=== PATIENT | female | born 1985 | race Caucasian/White ===

== ENCOUNTER → 2019-05-12 | Outpatient (CLI) | payer OTHER | END | disposition home or self-care (01) | LOC: PRENATAL 13:00 | DX: O26.849 Uterine size-date discrepancy, unspecified trimester (principal); O99.89 Other specified diseases and conditions complicating pregnancy, childbirth and the puerperium ==

== ENCOUNTER 2019-07-10 23:07 | Outpatient (CLI) | payer OTHER ==
[~2019-07-10] VITALS: Ht 152.4 cm; Wt 77.1 kg
[2019-07-11] MEDS ORDERED: PRENATAL TABLE1 EAC1 PO (00:23)
[2019-07-11] MEDS ORDERED: ZYRTEC10 M3 PO (00:24)
[2019-07-11] MEDS ORDERED: SYNTHROID75 MCG PO (00:24)
[2019-07-11] MEDS ORDERED: CLARITIN10 MG PO (00:25)
[2019-07-11] MEDS ORDERED: FUSION PLUS CA1 EACH PO ×2 (11:47→11:49)
== END 2019-07-11 11:54 | disposition home or self-care (01) ==
LOC: OBS/DEL 23:07
DX: O47.1 False labor at or after 37 completed weeks of gestation (principal); O99.013 Anemia complicating pregnancy, third trimester; D64.89 Other specified anemias

== ENCOUNTER 2019-12-14 11:29 | Outpatient (CLI) | payer OTHER ==
[~2019-12-14 11:29] MED LIST: CLARITIN10 MG PO; FUSION PLUS CA1 EACH PO; PRENATAL TABLE1 EAC1 PO; SYNTHROID75 MCG PO; ZYRTEC10 M3 PO
== END 2019-12-14 11:33 | disposition home or self-care (01) ==
LOC: RAD 11:29
PROVIDERS: ATTEND Physical Medicine & Rehabilitation
DX: M54.5 Low back pain (principal)

== ENCOUNTER 2020-01-25 11:28 | Outpatient (CLI) | payer OTHER | END 2020-01-25 11:39 | disposition home or self-care (01) | LOC: RAD 11:28 | PROVIDERS: ATTEND Physical Medicine & Rehabilitation | DX: M43.16 Spondylolisthesis, lumbar region (principal) ==

== ENCOUNTER 2021-11-02 12:51 | Outpatient (CLI) | payer OTHER | END 2021-11-02 13:06 | disposition home or self-care (01) | LOC: SONOGRAMA 12:51 | PROVIDERS: ATTEND Ophthalmology | DX: R19.8 Other specified symptoms and signs involving the digestive system and abdomen (principal) ==

== ENCOUNTER 2023-03-14 13:47 | Outpatient (CLI) | payer OTHER | END 2023-03-14 13:50 | disposition home or self-care (01) | LOC: PRENATAL 13:47 | PROVIDERS: ATTEND Obstetrics & Gynecology Maternal & Fetal Medicine | DX: O36.80X0 Pregnancy with inconclusive fetal viability, not applicable or unspecified (principal); Z36.82 Encounter for antenatal screening for nuchal translucency; O09.529 Supervision of elderly multigravida, unspecified trimester; O99.280 Endocrine, nutritional and metabolic diseases complicating pregnancy, unspecified trimester; Z3A.11 11 weeks gestation of pregnancy ==

== ENCOUNTER 2023-03-24 23:27 | Emergency (ER) | payer OTHER ==
[~2023-03-24] VITALS: Ht 165.1 cm; Wt 65.8 kg
[2023-03-25 04:47] LABS: PH,URINE 6.5 (5.0-8.0); URINE APPEARANCE Clear; URINE BILIRRUBIN Negative (NEGATIVE); URINE BLOOD Negative; URINE COLOR Yellow; URINE GLUCOSE Negative (NEGATIVE); URINE LEUKOCYTE Negative; URINE NITRATE Negative; URINE PROTEIN Negative (NEGATIVE); URINE UROBILINOGEN 0.2 E.U./dl
[2023-03-25 04:50] LABS: URINE BACTERIA 99.5 uL (0.0-1933); URINE EPITHELIAL CELLS 2.4 uL (0.0-38.8); URINE RBC 7.6 uL (0.0-20.8); URINE WBC 4.6 uL (0.0-23.2)
[2023-03-25 05:10] LABS: HEMATOCRIT 30.1 % (36.0-45.00); MEAN CELL VOLUME 84.3 fL (80.00-100.00); MEAN CORPUSCULAR HEMOGLOBIN 29.4 pg (27.00-32.0); MEAN CORPUSCULAR HGB CONC 34.9 g/dl (32.0-36.0); PLATELET COUNT 261 K/uL (150-450); RED BLOOD COUNT 3.57 M/uL (4.00-6.00); RED CELL DISTRIBUTION WIDTH 13.3 % (11.5-14.5)
[2023-03-25 05:13] LABS: HEMOGLOBIN 10.5 g/dL (12.0-15.00)
== END 2023-03-25 09:04 | disposition home or self-care (01) ==
LOC: ER 23:28
DX: O26.891 Other specified pregnancy related conditions, first trimester (principal); Z3A.13 13 weeks gestation of pregnancy

== ENCOUNTER 2023-05-07 13:00 | Outpatient (CLI) | payer OTHER | END 2023-05-07 13:01 | disposition home or self-care (01) | LOC: PRENATAL 13:00 | PROVIDERS: ATTEND Obstetrics & Gynecology Maternal & Fetal Medicine | DX: O35.3XX0 Maternal care for (suspected) damage to fetus from viral disease in mother, not applicable or unspecified (principal); O44.00 Complete placenta previa NOS or without hemorrhage, unspecified trimester; O09.529 Supervision of elderly multigravida, unspecified trimester; O99.280 Endocrine, nutritional and metabolic diseases complicating pregnancy, unspecified trimester; Z3A.19 19 weeks gestation of pregnancy ==

== ENCOUNTER 2023-08-06 12:34 | Outpatient (CLI) | payer OTHER | END 2023-08-06 12:37 | disposition home or self-care (01) | LOC: PRENATAL 12:34 | PROVIDERS: ATTEND Obstetrics & Gynecology Maternal & Fetal Medicine | DX: O26.849 Uterine size-date discrepancy, unspecified trimester (principal); O36.8199 Decreased fetal movements, unspecified trimester, other fetus; O09.529 Supervision of elderly multigravida, unspecified trimester; O99.280 Endocrine, nutritional and metabolic diseases complicating pregnancy, unspecified trimester; O99.019 Anemia complicating pregnancy, unspecified trimester; Z3A.32 32 weeks gestation of pregnancy ==